=== PATIENT | female | born 1975 | race African-American/Black ===

== ENCOUNTER 2019-07-04 16:03 | Emergency (ER) | payer OTHER ==
[~2019-07-04] VITALS: Ht 177.8 cm; Wt 122.5 kg
[~2019-07-04 16:03] MED LIST: DIFLUCAN150 MG PO; DIFLUCAN200 MG PO; FLAGYL500 MG PO; MICONAZOLE 745 GM VG; NORCO 5-325 TA1 EACH PO; TRIAMCINOLONE A80 G2 TOP
[2019-07-04 16:25] LABS: URINE BILIRUBIN NEGATIVE (Negative); URINE BLOOD NEGATIVE (Negative); URINE CLARITY CLEAR; URINE COLOR YELLOW; URINE GLUCOSE-RANDOM* NEGATIVE (Negative); URINE KETONES NEGATIVE (Negative); URINE LEUKOCYTES-REFLEX NEGATIVE (Negative); URINE NITRITE-REFLEX NEGATIVE (Negative); URINE PROTEIN (DIPSTICK) NEGATIVE (Negative); URINE SPECIFIC GRAVITY >= 1.030 (1.005-1.035); URINE UROBILINOGEN 0.2 E.U./dl (0.2-1.0)
[2019-07-04] MEDS ORDERED: METRONIDAZOLE500 M4 PO (17:22)
[2019-07-04] MEDS ORDERED: DIFLUCAN150 M1 PO (17:29)
[2019-07-04 17:38] VITALS: BP 117/56
== END 2019-07-04 17:38 | disposition home or self-care (01) ==
LOC: ER 16:03
PROVIDERS: Nurse Practitioner
DX: A59.01 Trichomonal vulvovaginitis (principal); Z87.891 Personal history of nicotine dependence; Z98.890 Other specified postprocedural states; Z98.51 Tubal ligation status

== ENCOUNTER 2019-07-16 19:07 | Emergency (ER) | payer OTHER ==
[~2019-07-16] VITALS: Ht 177.8 cm; Wt 120.2 kg
[~2019-07-16 19:07] MED LIST changes: +DIFLUCAN150 M1 PO; +METRONIDAZOLE500 M4 PO
[2019-07-16 19:25] LABS: ICTOTEST (BILI CONFIRMATORY) Negative (Negative); URINE BILIRUBIN 1+ (Negative); URINE BLOOD NEGATIVE (Negative); URINE CLARITY CLEAR; URINE COLOR YELLOW; URINE GLUCOSE-RANDOM* NEGATIVE (Negative); URINE KETONES NEGATIVE (Negative); URINE LEUKOCYTES-REFLEX NEGATIVE (Negative); URINE NITRITE-REFLEX NEGATIVE (Negative); URINE PROTEIN (DIPSTICK) NEGATIVE (Negative); URINE SPECIFIC GRAVITY >= 1.030 (1.005-1.035)
[2019-07-16] MEDS ORDERED: DIFLUCAN100 MG PO (20:22)
[2019-07-16 20:30] VITALS: BP 115/76
== END 2019-07-16 20:30 | disposition home or self-care (01) ==
LOC: ER 19:07
PROVIDERS: Nurse Practitioner
DX: Z20.2 Contact with and (suspected) exposure to infections with a predominantly sexual mode of transmission (principal); Z98.890 Other specified postprocedural states; Z98.51 Tubal ligation status; Z87.891 Personal history of nicotine dependence

== ENCOUNTER 2020-01-09 16:45 | Emergency (ER) | payer OTHER ==
[~2020-01-09] VITALS: Ht 177.8 cm; Wt 113.4 kg
[~2020-01-09 16:45] MED LIST changes: +DIFLUCAN100 MG PO
[2020-01-09 17:37] LABS: URINE BILIRUBIN NEGATIVE (Negative); URINE BLOOD NEGATIVE (Negative); URINE CLARITY CLEAR; URINE COLOR YELLOW; URINE GLUCOSE-RANDOM* NEGATIVE (Negative); URINE KETONES NEGATIVE (Negative); URINE LEUKOCYTES-REFLEX NEGATIVE (Negative); URINE NITRITE-REFLEX NEGATIVE (Negative); URINE PROTEIN (DIPSTICK) NEGATIVE (Negative); URINE SPECIFIC GRAVITY >= 1.030 (1.005-1.035); URINE UROBILINOGEN 0.2 E.U./dl (0.2-1.0)
[2020-01-09] MEDS ORDERED: FLAGYL500 M1 PO (19:04)
[2020-01-09 19:15] VITALS: BP 136/82
[2020-01-09] MEDS ORDERED: DIFLUCAN200 MG PO (19:58)
== END 2020-01-09 19:58 | disposition home or self-care (01) ==
LOC: ER 16:45
PROVIDERS: Nurse Practitioner
DX: Z20.2 Contact with and (suspected) exposure to infections with a predominantly sexual mode of transmission (principal); Z87.891 Personal history of nicotine dependence

== ENCOUNTER 2020-06-29 20:08 | Emergency (ER) | payer OTHER ==
[~2020-06-29] VITALS: Ht 177.8 cm; Wt 104.3 kg
[~2020-06-29 20:08] MED LIST changes: +FLAGYL500 M1 PO
[2020-06-29 20:28] LABS: URINE BILIRUBIN NEGATIVE (Negative); URINE BLOOD 1+ (Negative); URINE CLARITY CLEAR; URINE COLOR YELLOW; URINE GLUCOSE-RANDOM* NEGATIVE (Negative); URINE KETONES NEGATIVE (Negative); URINE LEUKOCYTES-REFLEX NEGATIVE (Negative); URINE NITRITE-REFLEX NEGATIVE (Negative); URINE PROTEIN (DIPSTICK) NEGATIVE (Negative)
[2020-06-29] MEDS ORDERED: DOXYCYCLINE 10100 MG PO (20:33)
[2020-06-29] MEDS ORDERED: DIFLUCAN100 MG PO (20:38)
[2020-06-29 20:39] LABS: MUCUS 4-6 Moderate strn/LPF (None Seen)
[2020-06-29 20:40] LABS: SQUAMOUS >10 Many /LPF (0-3); URINE WBC-REFLEX 0-5 Rare /HPF (0-5)
[2020-06-29 20:41] LABS: BACTERIA-REFLEX 1-9 Few /HPF (None Seen); CASTS None Seen /LPF (None Seen); CRYSTALS None Seen /LPF (None Seen); URINE RBC None Seen /HPF (0-2)
[2020-06-29 22:00] VITALS: BP 112/62
== END 2020-06-29 22:17 | disposition home or self-care (01) ==
LOC: ER 20:08
PROVIDERS: Nurse Practitioner
DX: A64 Unspecified sexually transmitted disease (principal); Z87.891 Personal history of nicotine dependence; Z79.899 Other long term (current) drug therapy

== ENCOUNTER 2021-02-10 20:49 | Emergency (ER) | payer OTHER ==
[~2021-02-10] VITALS: Ht 177.8 cm; Wt 104.3 kg
[~2021-02-10 20:49] MED LIST changes: +DOXYCYCLINE 10100 MG PO
[2021-02-10 21:07] LABS: URINE BILIRUBIN NEGATIVE (Negative); URINE BLOOD NEGATIVE (Negative); URINE CLARITY CLEAR; URINE COLOR YELLOW; URINE GLUCOSE-RANDOM* NEGATIVE (Negative); URINE KETONES TRACE (Negative); URINE LEUKOCYTES-REFLEX NEGATIVE (Negative); URINE NITRITE-REFLEX NEGATIVE (Negative); URINE PROTEIN (DIPSTICK) NEGATIVE (Negative); URINE SPECIFIC GRAVITY >= 1.030 (1.005-1.035); URINE UROBILINOGEN 0.2 E.U./dl (0.2-1.0)
[2021-02-10] MEDS ORDERED: FLAGYL500 M1 PO (21:51)
[2021-02-10 21:58] VITALS: BP 110/70
[2021-02-10] MEDS ORDERED: DIFLUCAN150 MG PO (21:58)
== END 2021-02-10 21:59 | disposition home or self-care (01) ==
LOC: ER 20:49
PROVIDERS: Physician Assistant
DX: N76.0 Acute vaginitis (principal); B96.89 Other specified bacterial agents as the cause of diseases classified elsewhere; F12.90 Cannabis use, unspecified, uncomplicated; Z98.890 Other specified postprocedural states; Z87.891 Personal history of nicotine dependence

== ENCOUNTER 2021-03-05 14:03 | Emergency (ER) | payer OTHER ==
[~2021-03-05] VITALS: Ht 177.8 cm; Wt 106.6 kg
[2021-03-05 14:10] VITALS: BP 133/59
[2021-03-05] MEDS ORDERED: BACTRIM DS TAB1 EAC1 PO (14:43)
[2021-03-05] MEDS ORDERED: DIFLUCAN150 M1 PO (14:49)
== END 2021-03-05 15:26 | disposition home or self-care (01) ==
LOC: ER 14:03
DX: N76.4 Abscess of vulva (principal); Z98.51 Tubal ligation status; Z87.891 Personal history of nicotine dependence